=== PATIENT | male | born 1965 | race Hispanic/Latino ===

== ENCOUNTER → 2024-02-29 | Day surgery (SDC) | payer BC ==
[~2024-02-29] MED LIST: HYOSCYAMINE SULFATE 0.5 MG/ML INJ ONE; LACTATED RINGER'S 1,000 ML ONE; PROPOFOL IV EMULSION 50 ML IV ONE; SKYRIZI150 MG/1 M INJ; VITAMIN C1000 MG PO; VITAMIN D PO; ZESTRIL10 MG PO; ZINC PO
[2024-02-29 14:26] VITALS: TEMP 97.8
[2024-02-29 14:40] VITALS: BP 122/85; PULSE 89; RESP 15; O2SAT 98
== END | disposition home or self-care (01) ==
LOC: OR 12:10
PROVIDERS: ATTEND Internal Medicine Gastroenterology
DX: Z12.11 Encounter for screening for malignant neoplasm of colon (principal); D12.4 Benign neoplasm of descending colon; K64.8 Other hemorrhoids; Z71.3 Dietary counseling and surveillance; I10 Essential (primary) hypertension; Z71.89 Other specified counseling; E66.01 Morbid (severe) obesity due to excess calories; L40.9 Psoriasis, unspecified; F17.210 Nicotine dependence, cigarettes, uncomplicated; Z71.6 Tobacco abuse counseling; Z79.899 Other long term (current) drug therapy; Z68.38 Body mass index [BMI] 38.0-38.9, adult; Z86.19 Personal history of other infectious and parasitic diseases
CPT/HCPCS: 36415; 45380; 82948; J1980; J2704; J7121; 45378